=== PATIENT | male | born 1970 | race Caucasian/White ===

== ENCOUNTER 2018-12-05 17:46 | Emergency (ER) | payer OTHER ==
[~2018-12-05] VITALS: Ht 177.8 cm; Wt 83.9 kg
[2018-12-05] MEDS ORDERED: INDOMETHACIN50 MG PO (19:23)
== END 2018-12-05 19:34 | disposition home or self-care (01) ==
LOC: ED 17:46
DX: M10.9 Gout, unspecified (principal); F17.200 Nicotine dependence, unspecified, uncomplicated
CPT/HCPCS: 73630; 99283